=== PATIENT | male | born 1955 | race Caucasian/White ===

== ENCOUNTER 2024-08-06 07:08 | Outpatient (CLI) | payer MEDICARE, SELFPAY ==
--- NOTE | 2024-08-06 08:40 | W.ANESCHARGE ---
Anesthesia Charges Start Date/Time Anesthesia Start Date: 08/06/24 Anesthesia Start Time: 07:55 Stop Date/Time Anesthesia Stop Date: 08/06/24 Anesthesia Stop Time: 08:39 Coding CPT Codes CPT Codes: REINA LWR INTST NDSC NOS - [id number] ([id number]) P2 - PATIENT W/MILD SYST DISEASE, QK - CHIEF CRNA 2-4 CNCRNT ANES PROC, QX - COPY MANAGER SVC W/ MD MED DIRECTION
--- NOTE | 2024-08-06 10:02 | P.ANES_ITS ---
Anesthesia Charges Start Date/Time Anesthesia Start Date: 08/06/24 Anesthesia Start Time: 07:55 Stop Date/Time Anesthesia Stop Date: 08/06/24 Anesthesia Stop Time: 08:39 Coding CPT Codes CPT Codes: REINA LWR INTST NDSC NOS - [id number] ([id number]) P2 - PATIENT W/MILD SYST DISEASE, QK - GROUND INSTRUCTOR ADVANCED 2-4 CNCRNT ANES PROC, QX - PRINCIPAL TECHNICAL SPECIALIST SVC W/ MD MED DIRECTION
--- NOTE | 2024-08-06 10:02 | W.ANESCHARGE ---
Anesthesia Charges Start Date/Time Anesthesia Start Date: 08/06/24 Anesthesia Start Time: 07:55 Stop Date/Time Anesthesia Stop Date: 08/06/24 Anesthesia Stop Time: 08:39 Coding CPT Codes CPT Codes: REINA LWR INTST NDSC NOS - [id number] ([id number]) P2 - PATIENT W/MILD SYST DISEASE, QK - SLITTING AND SHIPPING SUPERVISOR 2-4 CNCRNT ANES PROC, QX - SUPERVISOR LAMP SHADES SVC W/ MD MED DIRECTION
== END 2024-08-06 07:09 | disposition home or self-care (01) ==
LOC: OP CLINIC 07:10
PROVIDERS: PCP Family Medicine; Visit Provider Surgery
DX: Z12.11 Encounter for screening for malignant neoplasm of colon (principal); D12.2 Benign neoplasm of ascending colon; D12.5 Benign neoplasm of sigmoid colon; D12.8 Benign neoplasm of rectum; Z86.0100 Personal history of colon polyps, unspecified
CPT/HCPCS: 00811; 45385; 88305; J2704